=== PATIENT | male | born 1970 | race Caucasian/White ===

== ENCOUNTER 2021-08-11 01:30 | Inpatient (IN) ==
[2021-08-11] MEDS ORDERED: NIFEdipine Immed Rel 10 MG CAPSULE PO ONE (05:10)
[2021-08-11] MEDS ORDERED: Acetaminophen 325 MG TABLET PO PRN (05:16)
[2021-08-11] MEDS ORDERED: *HR* Dextrose 50 % in Water (Syg) 50 ML SYRINGE IVP PRN (05:26)
[2021-08-11] MEDS ORDERED: D5% in Water 1,000 ML IVC PRN (05:26)
[2021-08-11] MEDS ORDERED: Dextrose 4 GM Chewable Tablets PO PRN ×2 (05:26)
[2021-08-11] MEDS: Morphine Sulfate 2 MG/ML SYRINGE IVP PRN ×2 (05:27→23:47)
[2021-08-11] MEDS ORDERED: Perflutren Lipid Microsphere 1.3 ML in 0.9 % Sodium Chloride 8.7 ML IVP PRN (05:31)
[2021-08-11] MEDS ORDERED: Naloxone 0.4 MG/ML INJ IVP PRN (05:34)
[2021-08-11 06:01] LABS: Basophils # 0.1 K/mcL (0.0-0.2); Eosinophils # 0.2 K/mcL (0.0-0.6); Eosinophils % 3.5 %; Hematocrit 30.6 % (37.5-50.1); Immature Granulocytes % 0.8 % (0-4); Lymphocytes # 1.4 K/mcL (0.6-4.6); Lymphocytes % 23.5 %; Mean Corpuscular HGB Conc 32.7 g/dL (31.6-35.5); Mean Corpuscular Hemoglobin 29.4 pg (28.0-33.3); Mean Platelet Volume 9.1 fL (9.4-12.4); Monocytes # 0.5 K/mcL (0.0-1.3); Neutrophils # 3.7 K/mcL (1.6-8.9); Platelet Count 259 K/mcL (140-400); Red Cell Distribution Width 14.6 % (11.5-14.5); Segmented Neutrophils % 62.2 %
[2021-08-11 06:10] LABS: Prothrombin Time 10.9 Seconds (9.4-12.1)
[2021-08-11 06:13] LABS: Alanine Aminotransferase 22 Units/L (7-52); Albumin 3.6 g/dL (3.5-5.7); Albumin/Globulin Ratio 1.2 (1.1-2.2); Alkaline Phosphatase 115 Units/L (34-104); Aspartate Amino Transferase 14 Units/L (13-39); BUN/Creatinine Ratio 19 (6-26); Bilirubin,Total 0.3 mg/dL (0.3-1.0); Blood Urea Nitrogen 22 mg/dL (6-20); Calcium 8.4 mg/dL (8.6-10.3); Carbon Dioxide 21 mEq/L (23-29); Chloride 104 mEq/L (98-107); Globulin 3.1 g/dL (2.4-3.5); Glucose 390 mg/dL (70-105); Osmolality,Calculated 296 (280-300); Potassium 4.3 mEq/L (3.5-5.1); Sodium 133 mEq/L (136-145); Total Protein 6.7 g/dL (6.4-8.9); eGFR For African Americans > 60 (> 60); eGFR For Non-African Americans > 60 (> 60)
[2021-08-11] MEDS: Insulin LISPRO 300 UNITS/3 ML VIAL SUBQ SCH ×3 (06:13→19:55)
[2021-08-11 06:23] LABS: Chol/HDL Ratio 6.9 (0-4.9); Cholesterol 261 mg/dL (< 200); HDL Cholesterol 38 mg/dL (40-59); Triglycerides 457 mg/dL (< 150); Troponin I 0.03 ng/mL (< 0.04)
[2021-08-11] MEDS ORDERED: Isovue-370 500 ML BOTTLE IVP ONE (06:30)
[2021-08-11] MEDS: *HR* Heparin 5,000 UNIT/ML VIAL SQ SCH ×3 (06:49→21:13)
[2021-08-11] MEDS: Levalbuterol Neb 1.25 MG/3 ML IH SCH ×3 (07:35→20:18)
[2021-08-11] MEDS ORDERED: Albuterol Neb 1.25 MG/3 ML VIAL IH SCH (08:00)
[2021-08-11] MEDS ORDERED: Aspirin Enteric Coated 81 MG Tablet PO SCH (09:00)
[2021-08-11 10:21] LABS: Estimated Average Glucose 269 mg/dl
[2021-08-11] MEDS: *HR* HYDROcodone/Acet 5/325 mg TABLET PO PRN ×2 (10:38→21:14)
[2021-08-11] MEDS ORDERED: hydroCHLOROthiazide 25 MG TABLET PO ONE (16:15)
[2021-08-11] MEDS: Acetaminophen 325 MG TABLET PO PRN (16:28)
[2021-08-11] MEDS: amLODIPine 5 MG TABLET PO SCH (16:28)
[2021-08-11] MEDS: Famotidine 20 MG/2 ML VIAL IVP SCH (19:10)
[2021-08-11] MEDS: Budesonide/Formoterol 160/4.5 1 PUFF INH IH SCH (20:18)
[2021-08-11] MEDS: Gabapentin 400 MG CAPSULE PO SCH (21:13)
[2021-08-12] MEDS: Insulin LISPRO 300 UNITS/3 ML VIAL SUBQ SCH ×5 (00:36→23:48)
[2021-08-12] MEDS: Acetaminophen 325 MG TABLET PO PRN ×3 (01:09→20:09)
[2021-08-12 03:02] LABS: Hematocrit 28.9 % (37.5-50.1); Hemoglobin 9.5 g/dL (12.9-16.9); Mean Corpuscular HGB Conc 32.9 g/dL (31.6-35.5); Mean Corpuscular Hemoglobin 29.3 pg (28.0-33.3); Mean Corpuscular Volume 89.2 fL (83.0-100.0); Mean Platelet Volume 9.5 fL (9.4-12.4); Platelet Count 283 K/mcL (140-400); Red Blood Count 3.24 M/mcL (4.19-5.50); Red Cell Distribution Width 14.4 % (11.5-14.5); White Blood Count 6.9 K/mcL (4.3-11.1)
[2021-08-12 03:24] LABS: BUN/Creatinine Ratio 16 (6-26); Blood Urea Nitrogen 17 mg/dL (6-20); Calcium 8.2 mg/dL (8.6-10.3); Carbon Dioxide 23 mEq/L (23-29); Chloride 101 mEq/L (98-107); Glucose 262 mg/dL (70-105); Osmolality,Calculated 287 (280-300); Potassium 4.1 mEq/L (3.5-5.1); Sodium 133 mEq/L (136-145); eGFR For African Americans > 60 (> 60); eGFR For Non-African Americans > 60 (> 60)
[2021-08-12] MEDS: Morphine Sulfate 2 MG/ML SYRINGE IVP PRN ×2 (03:44→10:27)
[2021-08-12] MEDS: Levalbuterol Neb 1.25 MG/3 ML IH SCH ×4 (04:17→21:10)
[2021-08-12] MEDS: Famotidine 20 MG/2 ML VIAL IVP SCH ×2 (05:23→16:17)
[2021-08-12] MEDS: *HR* Heparin 5,000 UNIT/ML VIAL SQ SCH ×3 (05:23→20:10)
[2021-08-12] MEDS: *HR* HYDROcodone/Acet 5/325 mg TABLET PO PRN ×2 (05:36→13:48)
[2021-08-12] MEDS: Budesonide/Formoterol 160/4.5 1 PUFF INH IH SCH ×2 (07:52→21:10)
[2021-08-12] MEDS: amLODIPine 5 MG TABLET PO SCH (08:33)
[2021-08-12] MEDS: Gabapentin 400 MG CAPSULE PO SCH ×3 (08:34→20:09)
[2021-08-12] MEDS: Aspirin Enteric Coated 81 MG Tablet PO SCH (08:34)
[2021-08-12] MEDS ORDERED: Losartan/HCTZ 50-12.5 TABLET PO SCH (09:00)
[2021-08-12] MEDS ORDERED: Isosorbide MONOnitrate (24 HR) 60 MG TAB.ER.24H PO SCH (09:00)
[2021-08-12] MEDS ORDERED: *HR* Metoprolol 5 MG/5 ML VIAL IVP ONE (23:16)
[2021-08-13 03:34] LABS: Hematocrit 27.7 % (37.5-50.1); Hemoglobin 9.2 g/dL (12.9-16.9); Mean Corpuscular HGB Conc 33.2 g/dL (31.6-35.5); Mean Corpuscular Hemoglobin 30.5 pg (28.0-33.3); Mean Corpuscular Volume 91.7 fL (83.0-100.0); Platelet Count 257 K/mcL (140-400); Red Blood Count 3.02 M/mcL (4.19-5.50); Red Cell Distribution Width 14.7 % (11.5-14.5); White Blood Count 5.9 K/mcL (4.3-11.1)
[2021-08-13] MEDS: Levalbuterol Neb 1.25 MG/3 ML IH SCH ×4 (04:02→20:18)
[2021-08-13 05:07] LABS: Calcium 8.5 mg/dL (8.6-10.3); Potassium 4.3 mEq/L (3.5-5.1)
[2021-08-13] MEDS: Insulin LISPRO 300 UNITS/3 ML VIAL SUBQ SCH ×3 (05:29→16:40)
[2021-08-13] MEDS: *HR* Heparin 5,000 UNIT/ML VIAL SQ SCH ×3 (05:29→22:11)
[2021-08-13] MEDS: Famotidine 20 MG/2 ML VIAL IVP SCH ×2 (05:29→16:40)
[2021-08-13] MEDS: Budesonide/Formoterol 160/4.5 1 PUFF INH IH SCH ×2 (07:26→20:18)
[2021-08-13] MEDS: Acetaminophen 325 MG TABLET PO PRN (07:53)
[2021-08-13] MEDS: Aspirin Enteric Coated 81 MG Tablet PO SCH (10:52)
[2021-08-13] MEDS: Isosorbide MONOnitrate (24 HR) 60 MG TAB.ER.24H PO SCH (10:53)
[2021-08-13] MEDS: Gabapentin 400 MG CAPSULE PO SCH ×3 (10:53→22:11)
[2021-08-13] MEDS: amLODIPine 5 MG TABLET PO SCH (10:54)
[2021-08-13 12:31] LABS: eGFR For African Americans > 60 (> 60); eGFR For Non-African Americans 53 (> 60)
[2021-08-13] MEDS ORDERED: Nitroglycerin 0.4 MG TAB.SUBL SL PRN (14:16)
[2021-08-14] MEDS: Insulin LISPRO 300 UNITS/3 ML VIAL SUBQ SCH ×2 (01:51→05:17)
[2021-08-14 02:58] VITALS: BP 149/85; PULSE 78; TEMP 96.8
[2021-08-14] MEDS: Levalbuterol Neb 1.25 MG/3 ML IH SCH ×2 (04:17→07:28)
[2021-08-14] MEDS: *HR* Heparin 5,000 UNIT/ML VIAL SQ SCH (05:00)
[2021-08-14] MEDS: Famotidine 20 MG/2 ML VIAL IVP SCH (05:24)
[2021-08-14] MEDS: Budesonide/Formoterol 160/4.5 1 PUFF INH IH SCH (07:28)
[2021-08-14 07:31] VITALS: O2SAT 98
[2021-08-14] MEDS: amLODIPine 5 MG TABLET PO SCH (08:18)
[2021-08-14] MEDS: Gabapentin 400 MG CAPSULE PO SCH (08:19)
[2021-08-14] MEDS: Isosorbide MONOnitrate (24 HR) 60 MG TAB.ER.24H PO SCH (08:19)
[2021-08-14] MEDS: Aspirin Enteric Coated 81 MG Tablet PO SCH (08:19)
== END 2021-08-14 10:35 | disposition home or self-care (01) | DRG 198 ==
LOC: 3NENU → SUATTDRO 04:43
PROVIDERS: ADMIT Internal Medicine; ATTEND Student in an Organized Health Care Education/Training Program